=== PATIENT | female | born 1990 | race Hispanic/Latino ===

== ENCOUNTER 2018-03-03 21:42 | Emergency (ER) | payer OTHER ==
[2018-03-03 22:33] LABS: BASO # 0.1 10^3/uL (0.0-0.2); BASO % 0.4 % (0.0-1.0); EOS # 0.1 10^3/uL (0.0-0.50); HEMATOCRIT 39.9 % (36.0-47.0); HEMOGLOBIN 13.9 g/dl (12.0-15.5); IMMATURE GRANULOCYTE % 0.6 % (0-3.0); LYMPH # 2.8 10^3/uL (1.5-6.5); LYMPH % 21.2 % (24.0-44.0); MEAN CORPUSCULAR HEMOGLOBIN 29.5 pg (27.0-33.0); MEAN CORPUSCULAR HGB CONC 34.8 g/dl (32.0-36.5); MEAN CORPUSCULAR VOLUME 84.7 fl (80.0-96.0); MONO # 0.8 10^3/uL (0.0-0.8); MONO % 6.2 % (0.0-5.0); NEUTROPHILS # 9.5 10^3/uL (1.8-7.7); NEUTROPHILS % 70.6 % (36.0-66.0); PLATELET COUNT, AUTOMATED 315 10^3/uL (150-450); RED BLOOD COUNT 4.71 10^6/uL (4.00-5.40); RED CELL DISTRIBUTION WIDTH 11.9 % (11.5-14.5); WHITE BLOOD COUNT 13.4 10^3/uL (4.0-10.0)
[2018-03-03 22:38] LABS: KETONE, URINE AUTO RFX NEGATIVE (NEGATIVE); LEUKOCYTE ESTERASE UR AUTO RFX NEGATIVE (NEGATIVE); NITRITE, URINE AUTO RFX NEGATIVE (NEGATIVE); RBC, URINE AUTO RFX 2 /HPF (0-3); SPECIFIC GRAVITY UR AUTO RFX 1.003 (1.002-1.035); SQUAM EPITHELIAL CELL UR AURFX 0 /HPF (0-6); WBC, URINE AUTO RFX 0 /HPF (0-3)
[2018-03-03 23:28] LABS: HCG, SERUM QUANTITATIVE 54792 MIU/ML
== END 2018-03-04 00:27 | disposition home or self-care (01) ==
LOC: M ED 21:42
DX: O26.891 Other specified pregnancy related conditions, first trimester (principal); R10.2 Pelvic and perineal pain; Z3A.01 Less than 8 weeks gestation of pregnancy
CPT/HCPCS: 76801

== ENCOUNTER 2018-10-10 14:56 | Emergency (ER) | payer OTHER ==
[~2018-10-10] VITALS: Ht 152.4 cm; Wt 68.2 kg
[~2018-10-10 14:56] MED LIST: PRENTAB55 PO
[2018-10-10] MEDS ORDERED: predniSONE 20 MG TAB PO ONE (16:15)
[2018-10-10] MEDS ORDERED: PRED20TA PO (16:27)
[2018-10-10] MEDS ORDERED: [UNRECOGNIZED DRUG - CODE] XX (16:27)
[2018-10-10] MEDS ORDERED: ARTI99.0 OD (16:27)
[2018-10-10 16:45] VITALS: BP 135/85
[2018-10-13 14:55] LABS: Lyme Disease IgG/IgM Antibodie <0.91 ISR (0.00-0.90); Lyme Disease IgM Ab Quantitati <0.80 index (0.00-0.79)
== END 2018-10-10 16:54 | disposition home or self-care (01) ==
LOC: EDBD 14:56 → M ED 14:56
DX: O99.353 Diseases of the nervous system complicating pregnancy, third trimester (principal); G51.0 Bell's palsy; Z3A.38 38 weeks gestation of pregnancy

== ENCOUNTER 2018-10-25 07:31 | Outpatient (CLI) | payer OTHER ==
[~2018-10-25] VITALS: Ht 154.9 cm; Wt 68.6 kg
[~2018-10-25 07:31] MED LIST changes: +ARTI99.0 OD; +PRED20TA PO; +[UNRECOGNIZED DRUG - CODE] XX
[2018-10-25 07:51] VITALS: BP 118/83
[2018-10-26] MEDS ORDERED: TUMS750C22 PO (09:42)
--- NOTE | 2018-10-26 16:34 | HPE ---
DATE OF ADMISSION: 10/25/2018 This lady is a 27-year-old 1, para 0, LMP 01/21/2018, EDC 10/21/2018 at 40 and 5 weeks of gestation with query history of spontaneous rupture of membranes. No contractions. 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 She has hemoptysis for which a GI consult is in progress. Labs are A negative, HIV negative, hepatitis negative, RPR negative, rubella immune. Varicella immune. Pap normal. Urine negative. Gonorrhea and chlamydia negative. 1-hour glucose was 99. GBS was negative. CF was declined. On examination no acute distress. Symphysis fundus height is 40, vertex. Sterile speculum examination: No fluid was seen fully in the cul-de-sac. Cervix was closed. Nitrazine was negative. Ferning was negative. No BV and no yeast and no blood. The presenting part was ballotable. She had a category one strip with no contractions. She has a significant right side facial palsy from Padilla's palsy and a facial droop. The rest of the examination is unremarkable. She has a category one strip as mentioned. She is normocephalic, atraumatic. Neck full range of motions. Pupils equal and reactive to light. Distal pulses are symmetric. No evidence of DVT, PE or superficial phlebitis. Chest is clear bilaterally to bases. No wheezes or rhonchi. No CVA tenderness. Symphysis fundus height is appropriate. Four quadrant bowel sounds are noted. She has no rash, lesion, pruritus. She does have the facial palsy. She has no joint pain. No complaints of cough, wheeze, shortness of breath or dyspnea on exertion. No bleeding. Neurologically complete. No incontinency, urgency, or frequency. No nausea, vomiting, diarrhea or constipation. No diabetic issues. No past ASSOCIATE PROFESSOR PHYSICIAN, medical or surgical history. Family history is noncontributory. She does not smoke, drink, or abuse drugs. She is to a soldier. No domestic violence and there is good support. Blood pressure 118/83, respirations are 18, pulse 92, temperature 97.8. No urine was available. In summary we have a late term gestation with no ruptured membranes, has an induction of labor booked in 72 hours. Precautions were given. Discharged undelivered. All questions were answered.
== END 2018-10-25 08:30 | disposition home or self-care (01) ==
LOC: M LDO 07:31
PROVIDERS: ATTEND Obstetrics & Gynecology
DX: O99.89 Other specified diseases and conditions complicating pregnancy, childbirth and the puerperium (principal); R04.2 Hemoptysis; Z36.89 Encounter for other specified antenatal screening; Z3A.40 40 weeks gestation of pregnancy
CPT/HCPCS: 59025; G0378; G0463

== ENCOUNTER 2018-10-26 09:28 | Outpatient (CLI) | payer OTHER ==
[~2018-10-26] VITALS: Ht 152.4 cm; Wt 66.7 kg
[2018-10-26 09:42] VITALS: BP 140/81
[2018-10-26] MEDS ORDERED: TUMS750C22 PO (09:42)
[2018-10-26 09:56] VITALS: BP 115/65
[2018-10-26 10:43] VITALS: BP 117/70
== END 2018-10-26 11:00 | disposition home or self-care (01) ==
LOC: M LDO 09:28
PROVIDERS: ATTEND Obstetrics & Gynecology
DX: O26.853 Spotting complicating pregnancy, third trimester (principal); O26.893 Other specified pregnancy related conditions, third trimester; N89.8 Other specified noninflammatory disorders of vagina; O47.1 False labor at or after 37 completed weeks of gestation; Z3A.40 40 weeks gestation of pregnancy
CPT/HCPCS: 59025; G0378; G0463

== ENCOUNTER 2018-10-26 19:54 | Inpatient (IN) | payer OTHER ==
[~2018-10-26] VITALS: Ht 152.4 cm; Wt 66.7 kg
[~2018-10-26 19:54] MED LIST changes: +TUMS750C22 PO
[2018-10-26 20:11] VITALS: BP 126/65
[2018-10-26] MEDS ORDERED: LACTATED RINGER'S 1000 ML IV STA (21:40)
[2018-10-26] MEDS ORDERED: LR 1,000 ML IV SCH (21:40)
--- NOTE | 2018-10-26 21:59 | HPEPDOC ---
Obstetrical History & Physical General Date of Admission Oct 26, 2018 at 21:13 History of Present Illness 27 y/o at 40+5 by 8 wk US with reg painful ctx's. Pos FM. No LOF/VB. See n earlier today with cx 2-3 cm. Preg uncomplicated except for a Padilla's Palsy, treated with steroids several weeks ago. Rh Neg, received rhogam at 28 wks. Chief Complaint: Contractions, term Information Provided By: Patient Care Care: Good Care Dating Final EDC by: 1st trimester (US) Past Medical History Past Obstetrical History : Past Obstetrical History: Primgravida QUALITY ASSURANCE TECH History: No pertinent history Past Medical History Medical History denies Surgical History: [place] teeth Family History Significant Family History: No pertinent family hx Social History Marital Status: Family situation: Spouse/partner home Psychosocial History: No pertinent psych hx * Smoker: non-smoker Alcohol: Denies Drugs: denies Abuse Violence Screening Have you been hit/kicked/slapp: No Have you been sexually assault: No Imunizations Tdap status: current Influenza Status: current Allergies Coded Allergies: No Known Allergies (Unverified , 03/03/18) Medications Scheduled (Tums Chewy Bites) 750 Mg Chw, 1 TAB PO BID Artificial Tears (Artificial Tears) 1.4 % Maixne, 1 DROP OD Q2HP Multivitamins/ ( 19) 1 Tab Tab, 1 TAB PO DAILY Prednisone (Prednisone) 20 Mg Tab, 60 MG PO DAILY Physical Examination Physical Examination GENERAL: Alert and oriented times three. ABDOMEN: Gravid and non-tender to touch. FETUS: Is vertex (VTX) by sterile vaginal examination, Cx 4/80/-2/vtx well applied EXTREMITIES: No edema. Laboratory Data 24H LABS Laboratory Tests 2 10/26/18 21:20: Serology Scanned Report Hepatitis B Testing Urine Culture: No Growth Pertinent Laboratoy Data Blood Type: A- RBC Antibody Screen: Negative HIV: Negative Hepatitis B: Negative Rapid Plasma Reagin: Nonreactive Rubella: Immune Varicella: Immune Chlamydia/Gonorrhea: Negative Group B Streptococcus: Negative Quad Screen Test: Declined Cystic Fibrosis: Declined Anatomy Ultrasound Placenta Location: Posterior Normal Anatomy: Yes Placenta Previa: No Assessment Variability: Moderate Accelerations: Positive Decelerations: None Tocometer Contractions: Yes Frequency: regular Duration: greater than 60 seconds Strength: palpated as moderate Assessment/Plan Assessment active labor Plan Admit and orient. Php Website Developer and consent. Diet: clears Group B Streptococcus (GBS) negative Labs and intravenous (IV) per unit protocol. Counseled on Pitocin and induction of labor (IOL). Lactated Ringers (LR): Bolus 1000 mL prior to epidural if desires, then at 125 mL/hr. Anticipate normal spontaneous delivery () C-S as appropriate. Sessions SESSIONS,SINTIA Collado MD Oct 26, 2018 21:59
[2018-10-26 22:06] LABS: HEMATOCRIT 40.1 % (36.0-47.0); HEMOGLOBIN 13.7 g/dl (12.0-15.5); MEAN CORPUSCULAR HEMOGLOBIN 29.7 pg (27.0-33.0); MEAN CORPUSCULAR HGB CONC 34.2 g/dl (32.0-36.5); PLATELET COUNT, AUTOMATED 225 10^3/uL (150-450); RED BLOOD COUNT 4.61 10^6/uL (4.00-5.40); WHITE BLOOD COUNT 14.6 10^3/uL (4.0-10.0)
[2018-10-26] MEDS ORDERED: FENTANYL 2MCG/ML ROPIVACAINE 0.2% IN 0.9% NACL 100ML IVBAG As Ordered ONE (23:33)
[2018-10-26 23:54] VITALS: BP 146/94
[2018-10-26 23:57] VITALS: BP 139/94
[2018-10-27] VITALS (18 sets, daily range): BP systolic 89–155; BP diastolic 53–101
[2018-10-27] MEDS ORDERED: EPIDURAL COMMENT XX SCH (00:45)
[2018-10-27] MEDS ORDERED: REFRIGERATOR IV KEYS XX PRN (00:45)
[2018-10-27] MEDS ORDERED: diphenhydrAMINE INJ 50MG/ML VIAL (J1200) IV PRN (00:45)
[2018-10-27] MEDS ORDERED: EPIDURAL/PCA KEYS XX PRN (00:45)
[2018-10-27] MEDS ORDERED: ONDANSETRON 4MG/2ML VIAL (J2405) IV PRN ×2 (00:45→09:15)
[2018-10-27] MEDS ORDERED: FENTANYL/ROPIVACAINE/NACL BAG 100 ML EPIDURAL SCH (00:45)
[2018-10-27] MEDS ORDERED: NALOXONE INJ 0.4 MG/1 ML VIAL (J2310) IV PRN (00:45)
[2018-10-27] MEDS ORDERED: ePHEDrine SULFATE 25 MG/5 ML(5MG/ML) SYRINGE IV PRN (00:45)
[2018-10-27] MEDS ORDERED: OXYTOCIN DRIP 30 UNITS in APPROPRIATE DILUENT 1 EA IV SCH ×2 (01:30→09:15)
[2018-10-27] MEDS ORDERED: OXYTOCIN 30 UNITS IN 0.9% NaCl 500ML IV BAG (J2590) As Ordered ONE (01:33)
--- NOTE | 2018-10-27 03:25 | IPNPDOC ---
Text Note Date of Service The patient was seen on 10/27/18. NOTE fht cat 2, 2 episodes in last few hours of random late and also 1 3-min prolo nged decel, baby recovered both times Cx /0/vtx well applied, AROM with clr fluid Watching fht closely Recheck at ~0600 Sessions VS,Eric, I+O VSEric I+O Laboratory Tests 10/26/18 21:30 Red Blood Count 4.61, Mean Corpuscular Volume 87.0, Mean Corpuscular Hemoglobin 29.7, Mean Corpuscular Hemoglobin Concent 34.2, Red Cell Distribution Width 12.8 SESSIONS,SINTIA Collado MD Oct 27, 2018 03:25
--- NOTE | 2018-10-27 08:04 | IPNPDOC ---
Text Note Date of Service The patient was seen on 10/27/18. NOTE Accepting care of Ms. Gutierrez. 27 yo at 40+6 weeks gestation who was admitted for labor. has been uncomplicated. She underwent AROM, clear fluid, at ~0345. She has progressed well to completely dilatated and has just begun pushing. FHR Cat II, but with moderate variability, and overall reassuring. Continue with pushing efforts, safe to proceed. Dimitry Li DO VS,Eric, I+O VS, Eric, I+O Laboratory Tests 10/26/18 21:30 Red Blood Count 4.61, Mean Corpuscular Volume 87.0, Mean Corpuscular Hemoglobin 29.7, Mean Corpuscular Hemoglobin Concent 34.2, Red Cell Distribution Width 12.8 Vital Signs Date Time Temp Pulse Resp B/P (MAP) Pulse Ox O2 Delivery O2 Flow Rate FiO2 10/27/18 01:12 98.4 80 104/54 (71) DIMITRY LI DO Oct 27, 2018 08:04
[2018-10-27] MEDS ORDERED: DIBUCAINE 1% OINTMENT 30GM TOP PRN (09:15)
[2018-10-27] MEDS ORDERED: ACETAMINOPHEN 500 MG TAB PO PRN (09:15)
[2018-10-27] MEDS ORDERED: MEASLES,MUMPS,RUBELLA VACCINE INJ (MMR-II) (90707) SC SCH (09:15)
[2018-10-27] MEDS ORDERED: RHOGAM 300 MCG (1500 IU) INJ (J2790) IM SCH (09:15)
[2018-10-27] MEDS ORDERED: DOCUSATE SODIUM 100 MG CAP PO PRN (09:15)
--- NOTE | 2018-10-27 09:21 | DNPDOC ---
[facility] Delivery Note Delivery Note DATE OF DELIVERY: 27Oct2018 at ~0900 PREDELIVERY DIAGNOSIS: 40+6 weeks' gestation and labor. POST DELIVERY DIAGNOSIS: Delivered. PROCEDURE: Spontaneous vaginal delivery COMMUNICATION TECHNICIAN: Dr. Li ANESTHESIA: Neuraxial. ESTIMATED BLOOD LOSS: 200 mL. FINDINGS: Pending weight, female infant, Score 9/9 DELIVERY SUMMARY: Presented to room for assessment. Cervix C/C/+2 and she was pushing well. Her musa catheter was removed. The bed was broken down and she was prepped for delivery. With excellent effort her infant delivered over about 30 minutes of pushing while I was in the room. Presentation was STEWART with restitution to ROT. There was a tight triple nuchal cord that was delivered through and reduced manually. The left anterior shoulder delivered with gentle guidance followed easily by the remainder of the body. The infant was dried and stimulated on the field and a bulb suction was used. The infant cried vigorously and was placed on the maternal abdomen. The three vessel cord was then clamped and cut by the FOB. Third stage was spontaneous and it was productive of an intact placenta. The uterine fundus was firmed with massage and pitocin was administered IV bolus. The vagina, cervix, and perineum were inspected. There were no lacerations. The fundus was palpated again and was firm. Sponge, instrument, and needle counts were correct X2. Mother stable when I left the room. DO ROSELIA Gomez CHRISTOPHER J. DO Oct 27, 2018 09:21
[2018-10-27] MEDS: IBUPROFEN 800 MG TAB PO PRN (16:54)
[2018-10-27] MEDS: PRENATAL VITAMINS CHEWABLE TABLET PO SCH (16:54)
[2018-10-28 06:19] VITALS: BP 113/62
--- NOTE | 2018-10-28 07:27 | DS.PDOC ---
Discharge Summary General Date of Admission Oct 26, 2018 at 21:13 Date of Discharge Oct 28, 218 Discharge Summary HOSPITAL COURSE: Ms. Gutierrez is a 27 yo G1 Now P1 who underwent an uncomplicated on 27Oct2018 after being admitted for active labor. Her course has been unremarkable. On her day of discharge she met all appropriate discharge criteria. She was ambulating, voiding, tolerating a regular diet, and her pain was well controlled with PO pain medication. Lochia has been minimal. DISCHARGE MEDICATIONS: Please see below. ALLERGIES: Please see below. PHYSICAL EXAMINATION ON DISCHARGE: VITAL SIGNS: Please see below. GENERAL: AAOX3, sitting up in bed, NAD ABDOMINAL EXAMINATION: Fundus firm at U-2. No fundal tenderness. EXTREMITIES: No edema PSYCHIATRIC EXAMINATION: Affect appropriate LABORATORY DATA: Please see below. ACTIVITY: Pelvic rest for 6 weeks. DIET: Regular DISCHARGE PLAN: DC to home or to boarder status today DISPOSITION: discharge to home or to boarder status on 28Oct2018. DISCHARGE INSTRUCTIONS: 1. Pelvic rest for 6 weeks. ITEMS TO FOLLOWUP ON ON OUTPATIENT: 1. appointment in 6-8 weeks. DISCHARGE CONDITION: Stable. TIME SPENT ON DISCHARGE: Greater than 20 minutes. Dimitry Li DO Vital Signs/I&Os Vital Signs Date Time Temp Pulse Resp B/P (MAP) Pulse Ox O2 Delivery O2 Flow Rate FiO2 10/28/18 06:19 97.8 54 16 113/62 (79) I&O- Last 24 Hours up to 6 AM 10/28/18 06:00 Intake Total 4177 ml Output Total 1900 ml Balance 2277 ml Discharge Medications Scheduled (Tums Chewy Bites) 750 Mg Chw, 1 TAB PO BID, (Reported) Multivitamins/ ( ) 1 Tab Tab, 1 TAB PO DAILY, (Reported) Allergies Coded Allergies: No Known Allergies (Unverified , 03/03/18) DIMITRY LI DO Oct 28, 2018 07:27
[2018-10-28] MEDS ORDERED: MAPA500T2 PO (07:59)
[2018-10-28] MEDS ORDERED: COLA100C5 PO (07:59)
[2018-10-28] MEDS ORDERED: IBUP-1114 PO (07:59)
[2018-10-28] MEDS: PRENATAL VITAMINS CHEWABLE TABLET PO SCH (09:00)
[2018-10-28] MEDS: IBUPROFEN 800 MG TAB PO PRN (09:01)
== END 2018-10-28 14:55 | disposition home or self-care (01) | DRG 807 ==
LOC: M LDO 19:54 → M LDI 21:13 → M OBS 10-27 14:13
PROVIDERS: ADMIT Obstetrics & Gynecology; ATTEND Obstetrics & Gynecology
PROC: 10E0XZZ Delivery of Products of Conception, External Approach (ICD-10-PCS; principal; 2018-10-27)
PROC: 10907ZC Drainage of Amniotic Fluid, Therapeutic from Products of Conception, Via Natural or Artificial Opening (ICD-10-PCS; 2018-10-27)
DX: O48.0 Post-term pregnancy (principal); Z37.0 Single live birth; Z3A.40 40 weeks gestation of pregnancy; O69.1XX0 Labor and delivery complicated by cord around neck, with compression, not applicable or unspecified

== ENCOUNTER 2019-04-06 16:34 | Emergency (ER) | payer OTHER ==
[~2019-04-06] VITALS: Ht 152.4 cm; Wt 53.6 kg
[2019-04-06 16:34] VITALS: BP 142/93
[~2019-04-06 16:34] MED LIST changes: +COLA100C5 PO; +IBUP-1114 PO; +MAPA500T2 PO
== END 2019-04-06 18:41 | disposition left against medical advice (07) ==
LOC: M ED 16:34
DX: R20.0 Anesthesia of skin (principal); R25.3 Fasciculation; M62.838 Other muscle spasm; Z86.69 Personal history of other diseases of the nervous system and sense organs; Z79.899 Other long term (current) drug therapy

== ENCOUNTER → 2019-05-19 | Outpatient (REF) | payer OTHER ==
[~2019-05-19] MED LIST changes: -ARTI99.0 OD; +ARTIDRO2 OD
[2019-05-19 18:28] LABS: BASO % 0.5 % (0.0-1.0); EOS # 0.1 10^3/uL (0.0-0.5); EOS % 1.3 % (0.0-3.0); HEMATOCRIT 38.4 % (36.0-47.0); LYMPH # 1.8 10^3/uL (1.5-5.0); LYMPH % 29.1 % (24.0-44.0); MEAN CORPUSCULAR HEMOGLOBIN 30.4 pg (27.0-33.0); MEAN CORPUSCULAR HGB CONC 33.9 g/dl (32.0-36.5); MEAN CORPUSCULAR VOLUME 89.7 fl (80.0-96.0); MONO # 0.5 10^3/uL (0.0-0.8); MONO % 8.3 % (0.0-5.0); NEUTROPHILS # 3.7 10^3/uL (1.5-8.5); NEUTROPHILS % 60.6 % (36.0-66.0); PLATELET COUNT, AUTOMATED 302 10^3/uL (150-450); RED BLOOD COUNT 4.28 10^6/uL (4.00-5.40)
[2019-05-19 19:03] LABS: ALBUMIN 3.7 GM/DL (3.2-5.2); ALT/SGPT 18 U/L (12-78); BILIRUBIN,TOTAL 0.3 MG/DL (0.2-1.0); BLOOD UREA NITROGEN 14 MG/DL (7-18); CALCIUM LEVEL 8.5 MG/DL (8.5-10.1); CARBON DIOXIDE LEVEL 27 MEQ/L (21-32); CHLORIDE LEVEL 109 MEQ/L (98-107); CREATININE FOR GFR 0.54 MG/DL (0.55-1.30); FREE T4 0.94 NG/DL (0.76-1.46); GLOMERULAR FILTRATION RATE > 60.0 (>60); GLUCOSE, FASTING 80 MG/DL (70-100); POTASSIUM SERUM 3.9 MEQ/L (3.5-5.1); RHEUMATOID FACTOR QUANT < 10.0 IU/ML (<15.0); SODIUM LEVEL 141 MEQ/L (136-145); THYROID STIMULATING HORMONE 0.809 uIU/ML (0.358-3.740); TOTAL PROTEIN 6.5 GM/DL (6.4-8.2)
[2019-05-19 19:04] LABS: FOLATE > 24.0 NG/ML; VITAMIN B12 LEVEL 353 PG/ML
[2019-05-19 19:22] LABS: ERYTHROCYTE SEDIMENTATION RATE 5 mm/hr (0-20)
[2019-05-29 00:06] LABS: ANTINUCLEAR ANTIBODIES DIRECT Negative (Negative); Lyme Disease IgG/IgM Antibodie <0.91 ISR (0.00-0.90); Lyme Disease IgM Ab Quantitati <0.80 index (0.00-0.79); VITAMIN E(ALPHA TOCOPHEROL) 10.8 mg/L (5.9-19.4); VITAMIN E(GAMMA TOCOPHEROL) 1.3 mg/L (0.7-4.9)
== END ==
LOC: M LABNEURO 15:29
PROVIDERS: ATTEND Psychiatry & Neurology Neurology
DX: Z11.9 Encounter for screening for infectious and parasitic diseases, unspecified (principal); G51.0 Bell's palsy